=== PATIENT | female | born 2000 | race Caucasian/White ===

== ENCOUNTER 2022-07-16 11:47 | Emergency (ER) | payer OTHER ==
[~2022-07-16] VITALS: Ht 160 cm; Wt 61.0 kg
[2022-07-16] MEDS ORDERED: DIPHENHYDRAMINE HCL 25 MG CAP PO ONE (12:15)
[2022-07-16] MEDS ORDERED: PREDNISONE 20 MG TAB PO ONE (12:15)
[2022-07-16] MEDS ORDERED: FAMOTIDINE 20 MG TAB PO ONE (12:15)
[2022-07-16] MEDS ORDERED: PEPCID20 MG PO (12:17)
[2022-07-16] MEDS ORDERED: PREDNISONE20 MG PO (12:17)
[2022-07-16] MEDS ORDERED: BENADRYL25 M1 PO (12:17)
[2022-07-16] MEDS ORDERED: FAMOTIDINE 20 MG TAB ONE (12:20)
[2022-07-16] MEDS ORDERED: DIPHENHYDRAMINE HCL 25 MG CAP ONE (12:20)
[2022-07-16] MEDS ORDERED: PREDNISONE 20 MG TAB ONE (12:20)
== END 2022-07-16 12:40 | disposition home or self-care (01) ==
LOC: FSED 11:53
DX: R21 Rash and other nonspecific skin eruption (principal); T78.40XA Allergy, unspecified, initial encounter; E78.5 Hyperlipidemia, unspecified
CPT/HCPCS: 99283; J7512